=== PATIENT | female | born 1950 | race African-American/Black ===

== ENCOUNTER 2019-04-15 15:57 | Observation (INO) ==
[2019-04-15] MEDS ORDERED: ONDANSETRON 4 MG/2 ML VIAL IV PRN (17:52)
[2019-04-15] MEDS ORDERED: LABETALOL 20 MG/4 ML SYRINGE IV PRN (18:30)
[2019-04-15 18:40] LABS: Risk Ratio 2.38; VLDL CHOLESTEROL 17.6 MG/DL
[2019-04-15 18:45] LABS: Basophils % 0.8 % (0.0-0.8); Eosinophils # 0.4 10*3/uL (0.0-0.87); Eosinophils % 7.3 % (0.00-10.9); Hematocrit 39.5 VOL% (35.7-47.0); Hemoglobin 11.9 GM/DL (12.0-16.0); Immature Granulocytes % 0.4 %; Immature Granulocytes Absolute 0.02 #; Lymphocytes # 1.7 10*3/uL (1.4-4.0); Lymphocytes % 33.2 % (21.3-54.2); Mean Corpuscular HGB Conc 30.1 GM/DL (32-36); Mean Corpuscular Volume 70.8 FL (87-102); Monocytes % 9.7 % (1.7-12.7); Neutrophils % 48.6 % (38.7-73.9); Platelet Count 170 T/CUMM (130-400); Red Blood Count 5.58 MC/CUMM (3.8-5.5); White Blood Count 5.2 T/CUMM (4-12)
[2019-04-15 18:51] LABS: Alanine Aminotransferase 21 U/L (13-56); Albumin 3.8 G/DL (3.4-5.0); Alkaline Phosphatase 66 U/L (45-117); Aspartate Amino Transferase 29 U/L (0-37); Bilirubin,Total < 0.39 MG/DL (0.2-1.0); Blood Urea Nitrogen 15 MG/DL (7-18); Calcium 8.9 MG/DL (8.5-10.1); Glucose 101 MG/DL (74-106); Osmolality,Calculated 288.7 MOS/KG (273-304); Total Protein 6.8 G/DL (6.4-8.3)
[2019-04-15] MEDS: SODIUM CHLORIDE 0.9% 1,000 ML IV SCH (21:11)
[2019-04-16] MEDS: ENOXAPARIN 30 MG/0.3 ML SYRINGE SUBCUT SCH ×2 (00:12→20:12)
[2019-04-16] MEDS: ATORVASTATIN 80 MG TABLET PO SCH ×2 (00:13→20:08)
[2019-04-16 01:36] LABS: Barbiturates Screen,Urine Negative (Negative); Benzodiazepines Screen,Urine Negative (Negative); Cannabinoid Screen,Urine Negative (Negative); Opiate Screen,Urine Negative (Negative); Phencyclidine Screen,Urine Negative (Negative)
[2019-04-16] MEDS: SODIUM CHLORIDE 0.9% 1,000 ML IV SCH ×2 (03:20→15:00)
[2019-04-16] MEDS: PANTOPRAZOLE 40 MG TABLET PO SCH (09:19)
[2019-04-16] MEDS: hydroCHLOROthiazide 12.5 MG CAPSULE PO SCH (10:11)
[2019-04-16] MEDS: ENALAPRIL 10 MG TABLET PO SCH (10:11)
[2019-04-16] MEDS: ACETAMINOPHEN 325 MG TABLET PO PRN (10:14)
[2019-04-16] MEDS: sulfaSALAzine 500 MG TABLET PO SCH ×2 (14:50→20:12)
[2019-04-16] MEDS ORDERED: hydrALAZINE 20 MG/1 ML VIAL IV PRN (16:39)
[2019-04-16] MEDS ORDERED: cloNIDine 0.1 MG TABLET PO PRN (17:05)
[2019-04-16] MEDS ORDERED: METOPROLOL TARTRATE 5 MG/5 ML VIAL IV ONE (17:28)
[2019-04-16] MEDS ORDERED: CARVEDILOL 3.125 MG TABLET PO SCH ×3 (18:30→21:00)
[2019-04-16] MEDS: CARVEDILOL 3.125 MG TABLET PO SCH ×2 (19:07→20:12)
[2019-04-16] MEDS ORDERED: MONTELUKAST 10 MG TABLET PO SCH (21:00)
[2019-04-17 03:38] LABS: Basophils % 0.6 % (0.0-0.8); Eosinophils # 0.3 10*3/uL (0.0-0.87); Hematocrit 38.1 VOL% (35.7-47.0); Hemoglobin 11.8 GM/DL (12.0-16.0); Immature Granulocytes % 0.3 %; Immature Granulocytes Absolute 0.02 #; Lymphocytes # 1.9 10*3/uL (1.4-4.0); Lymphocytes % 29.8 % (21.3-54.2); Mean Corpuscular Volume 69.4 FL (87-102); Monocytes % 7.6 % (1.7-12.7); Neutrophils % 56.7 % (38.7-73.9); Platelet Count 164 T/CUMM (130-400); Red Blood Count 5.49 MC/CUMM (3.8-5.5); Red Cell Distribution Width 18.7 % (9.3-17.3); White Blood Count 6.2 T/CUMM (4-12)
[2019-04-17 04:05] LABS: Osmolality,Calculated 282.1 MOS/KG (273-304)
[2019-04-17] MEDS: ACETAMINOPHEN 325 MG TABLET PO PRN (04:11)
[2019-04-17 04:12] LABS: Anisocytosis 1+; Microcytosis 1+; Ovalocytes 1+; Platelet Estimate Normal
[2019-04-17 04:13] LABS: Hypochromasia Slight; Polychromasia Few
[2019-04-17] MEDS ORDERED: CARVEDILOL 3.125 MG TABLET PO SCH (08:00)
[2019-04-17] MEDS ORDERED: ASPIRIN EC 81 MG TABLET PO SCH (09:00)
[2019-04-17] MEDS ORDERED: POTASSIUM CHLORIDE 20 MEQ TABLET PO ONE (09:00)
[2019-04-17] MEDS: PANTOPRAZOLE 40 MG TABLET PO SCH (09:37)
[2019-04-17] MEDS: hydroCHLOROthiazide 12.5 MG CAPSULE PO SCH (09:37)
[2019-04-17] MEDS: ENALAPRIL 10 MG TABLET PO SCH (09:40)
[2019-04-17] MEDS: sulfaSALAzine 500 MG TABLET PO SCH (09:40)
[2019-04-17 12:33] VITALS: BP 141/77
== END 2019-04-17 12:20 | disposition home or self-care (01) ==
LOC: N.4E → SUATTDRO 16:37
PROVIDERS: ADMIT Internal Medicine; ATTEND Phlebology

== ENCOUNTER 2020-06-13 12:15 | Observation (INO) ==
[2020-06-13] MEDS ORDERED: niCARdipine INJ 25 MG in SODIUM CHLORIDE 0.9% 240 ML IV PRN (12:52)
[2020-06-13 12:54] LABS: Basophils % 0.7 % (0.0-0.8); Eosinophils # 0.2 10*3/uL (0.0-0.87); Eosinophils % 3.8 % (0.00-10.9); Hematocrit 41.4 VOL% (35.7-47.0); Hemoglobin 13.3 GM/DL (12.0-16.0); Immature Granulocytes % 0.4 %; Immature Granulocytes Absolute 0.02 #; Lymphocytes # 1.3 10*3/uL (1.4-4.0); Lymphocytes % 22.7 % (21.3-54.2); Mean Corpuscular HGB Conc 32.1 GM/DL (32-36); Mean Corpuscular Volume 71.1 FL (87-102); Monocytes % 9.5 % (1.7-12.7); Neutrophils % 62.9 % (38.7-73.9); Red Blood Count 5.82 MC/CUMM (3.8-5.5); Red Cell Distribution Width 18.8 % (9.3-17.3); White Blood Count 5.5 T/CUMM (4-12)
[2020-06-13] MEDS ORDERED: amLODIPine 5 MG TABLET PO STA (13:02)
[2020-06-13] MEDS ORDERED: ASPIRIN 325 MG TABLET PO STA (13:03)
[2020-06-13] MEDS ORDERED: NITROGLYCERIN 2% OINT 1 INCH/GM PACK TOP STA (13:03)
[2020-06-13] MEDS ORDERED: NITROGLYCERIN 2% OINT 1 INCH/GM PACK TOP ONE (13:06)
[2020-06-13] MEDS ORDERED: amLODIPine 10 MG TABLET ONE (13:06)
[2020-06-13] MEDS ORDERED: ASPIRIN 325 MG TABLET ONE (13:06)
[2020-06-13 13:07] LABS: Platelet Count 153 T/CUMM (130-400)
[2020-06-13 13:12] LABS: Albumin 3.6 G/DL (3.4-5.0); Bilirubin,Total 0.4 MG/DL (0.2-1.0); Calcium 9.6 MG/DL (8.5-10.1); Osmolality,Calculated 273.7 MOS/KG (273-304); Total Protein 7.4 G/DL (6.4-8.3)
[2020-06-13] MEDS ORDERED: ONDANSETRON 4 MG/2 ML VIAL IV PRN (15:47)
[2020-06-13] MEDS ORDERED: SIMETHICONE CHEW 125 MG TABLET PO PRN (15:47)
[2020-06-13] MEDS ORDERED: ZALEPLON 5 MG CAPSULE PO PRN (15:47)
[2020-06-13] MEDS ORDERED: DOCUSATE SODIUM 100 MG CAPSULE PO PRN (15:47)
[2020-06-13] MEDS ORDERED: DEXTROSE 50% 25 GM/50 ML VIAL IV PRN (15:47)
[2020-06-13] MEDS ORDERED: GLUCAGON 1 MG VIAL IM PRN (15:47)
[2020-06-13] MEDS ORDERED: AMITRIPTYLINE 25 MG TABLET PO PRN (16:07)
[2020-06-13] MEDS ORDERED: MONTELUKAST 10 MG TABLET PO PRN (16:07)
[2020-06-13] MEDS ORDERED: DICLOFENAC 1% GEL 100 GM TUBE TOP PRN (16:07)
[2020-06-13] MEDS ORDERED: NIFEdipine 10 MG CAPSULE PO PRN (16:10)
[2020-06-13] MEDS: ATORVASTATIN 20 MG TABLET PO SCH (20:55)
[2020-06-13] MEDS: sulfaSALAzine 500 MG TABLET PO SCH (20:57)
[2020-06-13] MEDS: LABETALOL 200 MG TABLET PO SCH (22:19)
[2020-06-13] MEDS: ACETAMINOPHEN 325 MG TABLET PO PRN (22:20)
[2020-06-13] MEDS: ENOXAPARIN 40 MG/0.4 ML SYRINGE SUBCUT SCH (22:20)
[2020-06-13] MEDS: cycloSPORINE OPH EMUL 1 VIAL BOTH EYES SCH (22:21)
[2020-06-14 01:40] LABS: Basophils % 0.5 % (0.0-0.8); Eosinophils # 0.2 10*3/uL (0.0-0.87); Eosinophils % 2.6 % (0.00-10.9); Hematocrit 43.3 VOL% (35.7-47.0); Hemoglobin 13.9 GM/DL (12.0-16.0); Immature Granulocytes % 0.2 %; Immature Granulocytes Absolute 0.02 #; Lymphocytes # 3.1 10*3/uL (1.4-4.0); Lymphocytes % 38.4 % (21.3-54.2); Mean Corpuscular HGB Conc 32.1 GM/DL (32-36); Mean Corpuscular Volume 70.4 FL (87-102); Monocytes % 10.1 % (1.7-12.7); Neutrophils % 48.2 % (38.7-73.9); Platelet Count 163 T/CUMM (130-400); Red Blood Count 6.15 MC/CUMM (3.8-5.5)
[2020-06-14 01:44] LABS: White Blood Count 8.1 T/CUMM (4-12)
[2020-06-14 02:05] LABS: Calcium 9.9 MG/DL (8.5-10.1); Osmolality,Calculated 275.5 MOS/KG (273-304); Risk Ratio 1.97; Thyroid Stimulating Hormone 2.44 uIU/ml (0.358-3.74); VLDL CHOLESTEROL 11.8 MG/DL
[2020-06-14 02:17] LABS: Hypochromasia 1+; Ovalocytes 2+; Platelet Estimate Normal; Schistocytes Few
[2020-06-14 02:20] LABS: Polychromasia Few
[2020-06-14] MEDS: sulfaSALAzine 500 MG TABLET PO SCH ×2 (09:09→21:50)
[2020-06-14] MEDS: ASPIRIN EC 81 MG TABLET PO SCH (09:11)
[2020-06-14] MEDS: PANTOPRAZOLE 40 MG TABLET PO SCH (09:11)
[2020-06-14] MEDS: LABETALOL 200 MG TABLET PO SCH ×3 (09:11→22:43)
[2020-06-14] MEDS: predniSONE 5 MG TABLET PO SCH (09:11)
[2020-06-14] MEDS: hydroCHLOROthiazide 25 MG TABLET PO SCH (09:11)
[2020-06-14] MEDS: cycloSPORINE OPH EMUL 1 VIAL BOTH EYES SCH ×2 (09:12→21:49)
[2020-06-14] MEDS ORDERED: POTASSIUM CHLORIDE 20 MEQ TABLET PO ONE (09:47)
[2020-06-14] MEDS ORDERED: OLMESARTAN 20 MG TABLET PO SCH (13:04)
[2020-06-14] MEDS: ATORVASTATIN 20 MG TABLET PO SCH (21:50)
[2020-06-14] MEDS: ENOXAPARIN 40 MG/0.4 ML SYRINGE SUBCUT SCH (21:50)
[2020-06-15] MEDS: ACETAMINOPHEN 325 MG TABLET PO PRN (05:24)
[2020-06-15 06:51] LABS: Calcium 9.2 MG/DL (8.5-10.1); Osmolality,Calculated 280.3 MOS/KG (273-304)
[2020-06-15 07:39] VITALS: BP 141/74
[2020-06-15] MEDS ORDERED: OLMESARTAN 20 MG TABLET PO SCH (09:00)
[2020-06-15] MEDS ORDERED: POTASSIUM CHLORIDE 20 MEQ TABLET PO SCH (09:00)
[2020-06-15] MEDS: sulfaSALAzine 500 MG TABLET PO SCH (09:16)
[2020-06-15] MEDS: predniSONE 5 MG TABLET PO SCH (09:17)
[2020-06-15] MEDS: ASPIRIN EC 81 MG TABLET PO SCH (09:17)
[2020-06-15] MEDS: hydroCHLOROthiazide 25 MG TABLET PO SCH (09:17)
[2020-06-15] MEDS: PANTOPRAZOLE 40 MG TABLET PO SCH (09:17)
[2020-06-15] MEDS: LABETALOL 200 MG TABLET PO SCH (09:17)
[2020-06-15] MEDS: cycloSPORINE OPH EMUL 1 VIAL BOTH EYES SCH (09:18)
[2020-06-15] MEDS ORDERED: ATORVASTATIN 40 MG TABLET PO SCH (10:03)
== END 2020-06-15 11:52 | disposition home or self-care (01) ==
LOC: N.EDINP 12:15 → N.ED 12:15 → N.TELEN 19:51
PROVIDERS: ADMIT Internal Medicine; ATTEND Internal Medicine

== ENCOUNTER 2022-10-28 22:11 | Observation (INO) ==
[2022-10-28] MEDS ORDERED: cloNIDine 0.1 MG TABLET PO STA (22:37)
[2022-10-28] MEDS ORDERED: niCARdipine INJ 25 MG in SODIUM CHLORIDE 0.9% 240 ML IV PRN (22:37)
[2022-10-28 23:03] LABS: Basophils % 0.5 % (0.0-0.8); Eosinophils # 0.2 10*3/uL (0.0-0.87); Eosinophils % 4.4 % (0.00-10.9); Hemoglobin 12.3 GM/DL (12.0-16.0); Immature Granulocytes % 0.4 %; Immature Granulocytes Absolute 0.02 #; Lymphocytes # 1.8 10*3/uL (1.4-4.0); Lymphocytes % 33.2 % (21.3-54.2); Mean Corpuscular HGB Conc 31.5 GM/DL (32-36); Mean Corpuscular Volume 73.2 FL (87-102); Monocytes # 0.5 10*3/uL (0.11-0.8); Monocytes % 9.6 % (1.7-12.7); Neutrophils % 51.9 % (38.7-73.9); Platelet Count 150 T/CUMM (130-400); Red Blood Count 5.33 MC/CUMM (3.8-5.5); Red Cell Distribution Width 17.6 % (9.3-17.3); White Blood Count 5.51 T/CUMM (4-12)
[2022-10-28 23:11] LABS: INR 0.9; PT Patient Result 10.3 SECS (10.1-12.1)
[2022-10-28 23:30] LABS: Albumin 3.4 G/DL (3.4-5.0); Bilirubin,Total 0.4 MG/DL (0.20-1.00); Calcium 9.4 MG/DL (8.5-10.1); Osmolality,Calculated 284.1 MOS/KG (273-304); Total Protein 6.7 G/DL (6.4-8.2)
[2022-10-28] MEDS ORDERED: NITROGLYCERIN 2% OINT 1 INCH/GM PACK TOP ONE (23:36)
[2022-10-28] MEDS ORDERED: NITROGLYCERIN 2% OINT 1 INCH/GM PACK TOP STA (23:37)
[2022-10-29] MEDS ORDERED: ONDANSETRON 4 MG/2 ML VIAL IV PRN (00:23)
[2022-10-29] MEDS ORDERED: SIMETHICONE CHEW 125 MG TABLET PO PRN (00:23)
[2022-10-29] MEDS ORDERED: ACETAMINOPHEN 325 MG TABLET PO PRN (00:23)
[2022-10-29] MEDS ORDERED: ALBUTEROL 2.5 MG/3 ML NEB RESP TX PRN (00:23)
[2022-10-29] MEDS ORDERED: AMITRIPTYLINE 50 MG TABLET PO PRN (00:29)
[2022-10-29] MEDS ORDERED: DICLOFENAC 1% GEL 100 GM TUBE TOP PRN (00:29)
[2022-10-29 03:41] LABS: Basophils % 0.7 % (0.0-0.8); Eosinophils # 0.3 10*3/uL (0.0-0.87); Eosinophils % 5.4 % (0.00-10.9); Immature Granulocytes % 0.4 %; Immature Granulocytes Absolute 0.02 #; Lymphocytes # 1.8 10*3/uL (1.4-4.0); Mean Corpuscular HGB Conc 31.6 GM/DL (32-36); Mean Corpuscular Volume 73.2 FL (87-102); Monocytes # 0.6 10*3/uL (0.11-0.8); Monocytes % 11.1 % (1.7-12.7); Neutrophils % 50.4 % (38.7-73.9); Platelet Count 141 T/CUMM (130-400); Red Blood Count 5.19 MC/CUMM (3.8-5.5); Red Cell Distribution Width 16.6 % (9.3-17.3); White Blood Count 5.69 T/CUMM (4-12)
[2022-10-29 04:02] LABS: Calcium 9.4 MG/DL (8.5-10.1); Osmolality,Calculated 281.3 MOS/KG (273-304); Potassium 3.7 MMOL/L (3.5-5.1); Risk Ratio 1.82; Thyroid Stimulating Hormone 1.92 uIU/ml (0.358-3.74)
[2022-10-29] MEDS ORDERED: ALPRAZolam 0.25 MG TABLET PO PRN (07:58)
[2022-10-29] MEDS ORDERED: cloNIDine 0.1 MG TABLET PO PRN (07:59)
[2022-10-29] MEDS ORDERED: LABETALOL 200 MG TABLET PO SCH (09:00)
[2022-10-29] MEDS ORDERED: CHLORTHALIDONE 25 MG TABLET PO SCH (09:00)
[2022-10-29] MEDS ORDERED: ESTRADIOL 1 MG TABLET PO SCH (09:00)
[2022-10-29] MEDS ORDERED: PANTOPRAZOLE 40 MG TABLET PO SCH (09:00)
[2022-10-29] MEDS ORDERED: DOCUSATE SODIUM 100 MG CAPSULE PO SCH (09:00)
[2022-10-29] MEDS ORDERED: cloNIDine 0.1 MG TABLET PO SCH (09:00)
[2022-10-29] MEDS ORDERED: sulfaSALAzine 500 MG TABLET PO SCH (09:00)
[2022-10-29] MEDS ORDERED: predniSONE 10 MG TABLET PO SCH (09:00)
[2022-10-29] MEDS ORDERED: ASPIRIN EC 81 MG TABLET PO SCH (09:00)
[2022-10-29] MEDS ORDERED: ENOXAPARIN 40 MG/0.4 ML SYRINGE SUBCUT SCH (09:00)
[2022-10-29] MEDS ORDERED: POTASSIUM CHLORIDE 20 MEQ TABLET PO SCH (09:00)
[2022-10-29] MEDS ORDERED: CLORAZEPATE 3.75 MG TABLET PO SCH (09:00)
[2022-10-29 12:11] VITALS: BP 110/67
[2022-10-29] MEDS ORDERED: ATORVASTATIN 10 MG TABLET PO SCH (21:00)
[2022-10-29] MEDS ORDERED: AMITRIPTYLINE 50 MG TABLET PO SCH (21:00)
== END 2022-10-29 13:45 | disposition home or self-care (01) ==
LOC: N.TELEN 22:11 → N.ED 22:11 → N.TELEN 10-29 01:23
PROVIDERS: ADMIT Internal Medicine; ATTEND Internal Medicine